=== PATIENT | female | born 1995 ===

== ENCOUNTER 2019-06-18 11:00 | Emergency (ER) | payer SELFPAY ==
[2019-06-18 11:07] VITALS: BP 115/85
--- NOTE | 2019-06-18 11:28 | Emergency Department Report ---
Chief Complaint: Earache Stated Complaint: SINUS PAIN,EAR ACHE Time Seen by Provider: 06/18/19 11:22 - HPI History of Present Illness: 24 y o femae presenst with sinus pressure and ear ache x 25 days she denies fever/chills/valentine/ - ROS Review of Systems: As noted in HPI - Exam Vital Signs: Vital Signs 06/18/19 11:04 Temperature 98.5 F Pulse Rate 96 H Respiratory 18 Rate Blood Pressure 115/85 O2 Sat by Pulse 96 Oximetry Physical Exam: EAR: TM non erythematous, no bulging bilat, clear sinus drainage in left ear HEAD: atraumatic, non tender maxilarry and frontal sinus MSE screening note: Focused history and physical exam performed. Due to findings the following was ordered: ED Medical Decision Making - Medical Decision Making Discussed with pt this is not a medical emergency Vital signs stable, no acute distress [facility]ed [facility] Disposition for MSE Clinical Impression: Sinusitis nasal Disposition: Z-07 MED SCREENING EXAM-LEFT Is pt being admited?: No Does the pt Need Aspirin: No Condition: Stable Instructions: Sinusitis (ED) Referrals: [facility] [Outside] - 3-5 Days [facility] [Outside] - 3-5 Days Forms: Work/School Release Form(ED) Time of Disposition: 11:25
== END 2019-06-18 11:27 | disposition left against medical advice (07) ==
LOC: ED 11:00
DX: J32.9 Chronic sinusitis, unspecified (principal)